=== PATIENT | male | born 1945 | race African-American/Black ===

== ENCOUNTER 2018-05-25 11:23 | Emergency (ER) | payer MEDICARE, OTHER ==
[~2018-05-25] VITALS: Ht 177.8 cm; Wt 100.0 kg
[~2018-05-25 11:23] MED LIST: ASPI-1079 PO; CLOP75TA33 PO; HYDR25TA PO; LISI40TA4 PO; SIMV20TA6 PO
[2018-05-25] MEDS ORDERED: ASPIRIN 81MG TABLET PO ONE (15:15)
[2018-05-25] MEDS ORDERED: ONDANSETRON HCL 4MG/2ML INJ IV ONE (15:45)
[2018-05-25] MEDS ORDERED: MORPHINE SULFATE 4 MG/ML CPJ (NOT FOR IM USE) IV ONE (15:45)
[2018-05-25 16:26] LABS: BASOPHILS % 0.3 % (0.0-2.0); CHLORIDE 108 mEq/L (98-107); EOSINOPHILS % 0.3 % (0.0-5.0); HEMATOCRIT. 46.7 % (42.0-52.0); HEMOGLOBIN. 15.3 g/dL (14.0-18.0); LYMPHOCYTES % 20.3 % (20.0-50.0); MEAN CORPUSCULAR HEMOGLOBIN 29.4 pg (28.0-32.0); MEAN CORPUSCULAR VOLUME 89.8 fL (80.0-94.0); MEAN PLATELET VOLUME 8.2 fl (7.4-10.4); NEUTROPHILS % 70.1 % (40.0-76.0); PLATELET 171 x1000/uL (130-400); RED CELL DISTRIBUTION WIDTH 15.3 % (11.6-14.6)
[2018-05-25 17:26] VITALS: BP 128/72
== END 2018-05-25 17:46 | disposition home or self-care (01) ==
LOC: ER 11:23 → CANBEDREQ 05-26 00:24
DX: R10.9 Unspecified abdominal pain (principal); I10 Essential (primary) hypertension; I25.10 Atherosclerotic heart disease of native coronary artery without angina pectoris; I25.2 Old myocardial infarction; Z90.49 Acquired absence of other specified parts of digestive tract; Z98.890 Other specified postprocedural states; Z79.899 Other long term (current) drug therapy
CPT/HCPCS: 36415; 71045; 74176; 80053; 83880; 84484; 85025; 93005; 96374; 96375; 99284; J2270; J2405

== ENCOUNTER 2019-03-16 23:23 | Emergency (ER) | payer OTHER | END 2019-03-17 01:15 | disposition left against medical advice (07) | LOC: ER 23:23 | DX: R06.02 Shortness of breath (principal); Z53.21 Procedure and treatment not carried out due to patient leaving prior to being seen by health care provider ==

== ENCOUNTER 2022-01-06 10:40 | Emergency (ER) | payer OTHER ==
[~2022-01-06] VITALS: Ht 167.6 cm; Wt 78.0 kg
[~2022-01-06 10:40] MED LIST changes: +LISI40TA13 PO; -LISI40TA4 PO; +SIMV-43 PO; -SIMV20TA6 PO
[2022-01-06] MEDS ORDERED: LIDOCAINE HCL/PF 1% 10 MG/ML 5ML VIAL INFIL ONE (11:15)
[2022-01-06] MEDS ORDERED: TETANUS, DIPHTHERIA, PERTUSSIS VAC/PF 0.5ML (>10YR OLD) IM ONE (11:15)
[2022-01-06] MEDS ORDERED: BACITRACIN ZINC OINT UDPKT TOP ONE (11:15)
[2022-01-06] MEDS ORDERED: ACETAMINOPHEN 325MG TABLET PO ONE (11:15)
[2022-01-06] MEDS ORDERED: ACET-2708 MT ×3 (11:24→13:00)
[2022-01-06] MEDS ORDERED: CEPH500C2 MT ×3 (11:24→13:00)
[2022-01-06] MEDS ORDERED: BO1 TP ×3 (11:24→13:00)
[2022-01-06 11:30] LABS: BASOPHILS % 0.3 % (0.0-2.0); EOSINOPHILS % 1.2 % (0.0-5.0); HEMATOCRIT. 41.5 % (42.0-52.0); HEMOGLOBIN. 13.9 g/dL (14.0-18.0); LYMPHOCYTES % 32.4 % (20.0-50.0); MEAN CORPUSCULAR HEMOGLOBIN 30.4 pg (28.0-32.0); MEAN CORPUSCULAR VOLUME 90.3 fL (80.0-94.0); MEAN PLATELET VOLUME 7.6 fl (7.4-10.4); MONOCYTES % 7.4 % (2.0-8.0); NEUTROPHILS % 58.7 % (40.0-76.0); PLATELET 194 x1000/uL (130-400); RED BLOOD CELL COUNT 4.59 mill/uL (4.7-6.1); RED CELL DISTRIBUTION WIDTH 14.8 % (11.6-14.6)
[2022-01-06 11:44] LABS: PARTIAL THROMBOPLASTIN TIME 30.2 sec (23.4-31.0)
[2022-01-06 12:46] VITALS: BP 142/86
== END 2022-01-06 12:46 | disposition home or self-care (01) ==
LOC: ER 10:40
DX: S61.213A Laceration without foreign body of left middle finger without damage to nail, initial encounter (principal); I25.2 Old myocardial infarction; N28.9 Disorder of kidney and ureter, unspecified; I10 Essential (primary) hypertension; W27.8XXA Contact with other nonpowered hand tool, initial encounter; Y93.H2 Activity, gardening and landscaping; Y92.9 Unspecified place or not applicable; Z86.73 Personal history of transient ischemic attack (TIA), and cerebral infarction without residual deficits
CPT/HCPCS: 12001; 36415; 73140; 85025; 85610; 85730; 90471; 90715; 99284; J3490

== ENCOUNTER 2022-01-09 08:13 | Emergency (ER) | payer OTHER ==
[~2022-01-09] VITALS: Ht 177.8 cm; Wt 95.0 kg
[~2022-01-09 08:13] MED LIST changes: +ACET-2708 MT; +BO1 TP; +CEPH500C2 MT
[2022-01-09 08:23] VITALS: BP 123/75
== END 2022-01-09 08:44 | disposition home or self-care (01) ==
LOC: ER 08:40
DX: S61.213D Laceration without foreign body of left middle finger without damage to nail, subsequent encounter (principal); X58.XXXD Exposure to other specified factors, subsequent encounter; I10 Essential (primary) hypertension; I25.2 Old myocardial infarction; Z79.899 Other long term (current) drug therapy
CPT/HCPCS: 99281

== ENCOUNTER 2022-01-17 12:30 | Emergency (ER) | payer OTHER ==
[~2022-01-17] VITALS: Ht 177.8 cm; Wt 95.0 kg
[2022-01-17 15:18] VITALS: BP 123/79
== END 2022-01-17 15:25 | disposition home or self-care (01) ==
LOC: ER 12:30
DX: Z48.02 Encounter for removal of sutures (principal); I12.9 Hypertensive chronic kidney disease with stage 1 through stage 4 chronic kidney disease, or unspecified chronic kidney disease; N18.9 Chronic kidney disease, unspecified; I25.2 Old myocardial infarction; Z86.73 Personal history of transient ischemic attack (TIA), and cerebral infarction without residual deficits; Z90.49 Acquired absence of other specified parts of digestive tract; Z79.82 Long term (current) use of aspirin
CPT/HCPCS: 99281